=== PATIENT | male | born 1945 | race Caucasian/White ===

== ENCOUNTER 2018-02-10 08:44 | Day surgery (SDC) | payer OTHER, MEDICARE ==
[~2018-02-10] VITALS: Ht 177.8 cm; Wt 150.0 kg
[~2018-02-10 08:44] MED LIST: ALLOPURINOL300 MG PO; ASPIRIN325 MG PO; LISINOPRIL10 MG PO; METOPROLOL SUCC50 MG PO; PRILOSEC OTC20 MG PO; SIMVASTATIN40 MG PO; TORSEMIDE10 MG PO
== END 2018-02-10 16:05 | disposition home or self-care (01) ==
LOC: CATH 08:44
DX: I25.10 Atherosclerotic heart disease of native coronary artery without angina pectoris (principal); Z95.5 Presence of coronary angioplasty implant and graft; G47.30 Sleep apnea, unspecified; Z86.718 Personal history of other venous thrombosis and embolism; Z86.711 Personal history of pulmonary embolism; Z79.82 Long term (current) use of aspirin
CPT/HCPCS: 93005; C1750; C1769; C1887; J1644; J2250; J3010; J7040